=== PATIENT | female | born 1980 | race Caucasian/White ===

== ENCOUNTER 2016-07-14 08:05 | Inpatient (IN) | payer BC, SELFPAY ==
--- NOTE | 2016-07-13 22:17 | HP ---
DATE OF ADMISSION: 07/14/2016 ADMISSION DIAGNOSIS: A 39 and 1/7th week intrauterine , elective induction of labor. HISTORY OF PRESENT ILLNESS: The patient is a 35-year-old, 6, para 3-1-1-4 white female, who is admitted for elective induction of labor. She has an KEYUR of 07/20/2016 as based upon an early ultrasound done on 12/02/2015 at 7 and 0/7th weeks gestational age. This was supported by an ultrasound repeated on 03/28/2016. She was admitted for elective induction of labor to consist of Pitocin with probable artificial rupture of membranes. The procedure, risks, benefits, alternatives of care including natural onset of late labor discussed in detail was taken. She appears to understand and wishes to proceed. 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 Her first delivered at 30 weeks' gestational age on 11/04/2005 - 3 pounds 15 ounce male infant at [facility] in [place] -child's name is Oneil. Her second baby delivered on 10/04/2007 at 39 weeks' gestational age - 7 pounds 14 ounces - male - cerclage placed early in the at approximately 12 weeks - removed at the end of the - child's name is Francisco. Her third child was born 12/29/2010 at 41 weeks' gestational age - 7 pounds 1 ounces - normal spontaneous vaginal delivery - cerclage placed until 37 weeks, child's name is Enrrique. Next was a miscarriage on 02/02/2012 at 6 weeks gestational age and last was a male born 02/10/2013 at 39 weeks' gestational age. After 8 hours of labor, the patient underwent a stat section for nonreassuring heart tones. The patient did have a cerclage with her last 3 term pregnancies. All were removed at approximately 37 weeks. Last child born was Frida. The patient had last menstrual period which was approximate on 08/24/2015. She had menarche at age 16. Positive test was 11/17/2015. No control at the time of conception. Cycles somewhat irregular. The cerclage was placed on 12/24/2015 and was removed at approximately 36 weeks' gestational age. The patient had [place] testing done which returned normal. Her [place] depression screen score was 2 on 03/05/2016. Group B strep screen was negative. 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 The patient plans to nurse. Her first visit was on 12/02/2015 at 7 weeks gestational age. Her weight gain was from 230.2 pounds to 238.6 pounds for an 8-pound weight gain. Fundal height growth was appropriate. Laboratory testing in includes blood type which is A positive. Antibody screen is negative. Platelets at first visit were normal at 295. Rubella titer shows immunity. RPR is nonreactive. Hepatitis B and HIV assays were both negative. Chlamydia and gonorrhea assays were negative. [place] testing 12/22/2014 was negative. Her second trimester labs included hemoglobin which is normal at 12.2. Platelet count was normal at 317. One-hour GTT was normal at 87. Repeat hemoglobin and platelet count on 06/29/2016 was 12.9 and 294 respectively. Group B strep screen was negative. ALLERGIES: Penicillin which causes a rash. CURRENT MEDICATIONS: 1. Valacyclovir two 1 g tablets by mouth q.12 hours p.r.n. for oral herpes. 2. Prevacid 24-hour 50 mg delayed release capsule p.r.n. 3. vitamin daily. PAST MEDICAL HISTORY: 1. Normal spontaneous vaginal delivery x3. 2. Miscarriage x1. 3. Incompetent cervix with 3 previously placed cervical cerclages. 4. -induced hypertension with fourth . PAST SURGICAL HISTORY: 1. Cervical cerclage x3. 2. x1 on 02/10/2013. FAMILY HISTORY: Father is secondary to suicide. Mother with heart disease. One brother alive and well. Maternal grandmother alive with diabetes and hypertension. Paternal grandfather , secondary to multiple myeloma. Paternal grandmother secondary to breast cancer at age 64. Paternal grandfather secondary to lung cancer - had a remote history of smoking. No bleeding, anesthesia, clotting or problems noted in the family. SOCIAL HISTORY: The patient is . is Atilio Potts. The patient lives in [place], [place]. She does not use any significant amounts of alcohol, drugs, or tobacco. REVIEW OF SYSTEMS: GENERAL: The patient has no significant concerns related to a general status. HEENT: No problems. CARDIOVASCULAR: No chest pain or exercise intolerance. RESPIRATORY: No shortness of breath, upper respiratory infection symptoms. BREASTS: Without concern. Changes noted from . GI: No nausea, vomiting, diarrhea, or constipation. SYSTEM: Normal changes of . EXTREMITIES/MUSCULOSKELETAL: Some no edema noted in lower extremities bilaterally, but no significant joint swelling or problems noted. NEUROLOGICAL SYSTEM: No deficits noted. PHYSICAL EXAMINATION: VITAL SIGNS: On last evaluation in clinic, blood pressure was 122/88, weight was 240 with pre weight being 230.2 pounds. Her heart rate was 130. At first visit, her height was 5 feet 8 inches. GENERAL: The patient is a well-developed, well-nourished, overweight white female, in no acute distress. She is alert and oriented x3 and appears to her stated age. SKIN: Warm, dry, without lesions. HEENT: Neck and back within normal limits. LUNGS: Clear with good breath sounds in all lung reynoso. BREASTS: Exam is deferred having been done at first visit found to be normal. It is not repeated at this time. The patient does plan to nurse. ABDOMEN: Protuberant with with fundal height of 38+ cm. Baby is in a vertex presentation. GENITAL: Shows the cervix to be 2++cm, 70% effaced, soft, -3, mid position. EXTREMITIES: Show no significant edema. NEUROLOGICAL: Grossly within normal limits. ASSESSMENT: 1. Term intrauterine at 39 and 1/7th week gestational age admitted for elective induction of labor with Pitocin/artificial rupture of membranes. 2. Risk factors include a history of previous section, history of cerclage x3 with possible scarring, age of 35. 3. Group B strep screen is negative. 4. The patient plans to nurse. 5. The patient is open to epidural in labor and delivery. PLAN: 1. Admit for elective induction of labor on 07/15/2015 at mid day. Procedure, risks, benefits, alternatives of care and followup were discussed in detail. This inspection in light of history of previous section with potential risks of the scar separation etc. She appears to understand, wishes to proceed. 2. We will have the patient sign a consent for and for vaginal after . 3. We will obtain labs to be prepared in case of emergency section is necessary. 4. We will monitor near continuously in Labor and Delivery. 5. Obtain IV access immediately upon admission to labor and delivery. 6. We will evaluate the cervix in the morning of induction and then see whether induction can be done with artificial rupture of membranes alone. If not gentle Pitocin induction with rupture of membranes is one possible. 7. We will alert anesthesia and the OR that the patient is a trial of labor candidate in an attempt to . 8. The patient's MMR is reactive. Therefore she is immune. KATH /[id number]
[2016-07-14] MEDS ORDERED: Bupivacaine 0.25% 10 ML SDV ONE (12:00)
[2016-07-14] MEDS ORDERED: Nalbuphine 20 MG/1 ML Amp IVPUSH PRN (12:59)
[2016-07-14] MEDS ORDERED: Ondansetron 4 MG/2 ML SDV IVPUSH PRN ×2 (12:59→14:11)
[2016-07-14] MEDS ORDERED: Sodium Chloride 0.9% 10 ML Syringe FLUSH PRN (12:59)
[2016-07-14] MEDS ORDERED: Lactated Ringers 1,000 ML IV SCH (13:00)
[2016-07-14] MEDS ORDERED: Oxytocin/Lactated Ringers 10 UNIT/1,000 ML BAG IV SCH ×2 (13:00→14:00)
[2016-07-14] MEDS: Lactated Ringers 1,000 ML IV SCH ×2 (14:01→23:05)
--- NOTE | 2016-07-14 14:01 | PCM.PREANE ---
Preanesthetic Assessment - ANESTHESIA/TRANSFUSION/FAMILY HX Anesthesia/Transfusion History: No Prior Transfusion(s), Prior Anesthesia, Prior Anesthesia Reaction Type of Anesthesia Reaction: Reports: Excessive Nausea/Vomiting (using inhaled agents ) Family History of Anesthesia Reaction: No Intubation History: Unknown Type of Transfusion Reactions: Reports: Unknown - REVIEW OF SYSTEMS Constitutional: Reports: no symptoms IMAGING MANAGER: Reports: no symptoms Respiratory: Reports: no symptoms Cardiovascular: Reports: palpitations GI: Reports: no symptoms (GERD currently on prevacid.) Other: Reports: none - PHYSICAL ASSESSMENT HR: 73 O2 Sat by Pulse Oximetry: 99 RR: 18 BP: 146/85 Temp: 37.2 C Height: 1.73 m Weight: 109.316 kg NPO Status Date: 07/14/16 NPO Status Time: 11:30 ASA Class: 2 Mental Status: alert & oriented x3 Airway Class: Mallampati = 2 Dentition: Reports: normal dentition, caries Thyro-Mental Finger Breadths: 3 Mouth Opening Finger Breadths: 3 ROM/Head Extension: full Respiratory Status: lungs clear to auscultation bilaterally Cardiovascular Status: regular rate & rhythm, normal S1, S2, no murmur - LAB Values: Laboratory Last Values WBC 14.24 K/mm3 (3.98-10.04) H 07/14/16 13:28 RBC 4.68 M/mm3 (3.98-5.22) 07/14/16 13:28 Hgb 12.1 gm/L (11.2-15.7) 07/14/16 13:28 Hct 36.9 % (34.1-44.9) 07/14/16 13:28 MCV 78.8 fl (79.4-94.8) L 07/14/16 13:28 MCH 25.9 pg (25.6-32.2) 07/14/16 13:28 MCHC 32.8 g/dl (32.2-35.5) 07/14/16 13:28 RDW Std Deviation 45.6 fL (36.4-46.3) 07/14/16 13:28 Plt Count 264 K/mm3 (182-369) 07/14/16 13:28 MPV 10.6 fl (9.4-12.3) 07/14/16 13:28 Reviewed and noted. - ALLERGIES Allergies/Adverse Reactions: Allergies Allergy/AdvReac Type Severity Reaction Status Date / Time Penicillins Allergy Rash Verified 12/24/15 07:38 - ANESTHESIA PLAN Preop Beta Amy: No Anesthesia Type Planned: epidural - ACKNOWLEDGEMENTS Pt an appropriate candidate for the planned anesthesia: Yes Alternatives and risks of anesthesia discussed w pt/guardian: Yes Pt/Guardian understands and agree with anesthesia plan: Yes PreAnesthesia Questionnaire - SUBSTANCE USE Smoking Status *Q: Never Smoker Tobacco Use Within Last Twelve Months: No Second Hand Smoke Exposure: No Recreational Drug Use History: No - HOME MEDS Home Medications: Home Meds Acetaminophen [Tylenol] 325 mg PO Q6HR PRN #30 tablet 12/24/15 [Rx] - CURRENT (IN HOUSE) MEDS Current Meds: Current Medications Lactated Ringer's (Ringers, Lactated) 1,000 mls @ 100 mls/hr IV ASDIRECTED NIGEL Lactated Ringer's (Ringers, Lactated) 1,000 mls @ 125 mls/hr IV ASDIRECTED NIGEL Oxytocin/Lactated Ringer's (Pitocin In Lr 10 Units/1,000 Ml) 10 unit in 1,000 mls @ 500 mls/hr IV TITRATE NIGEL Lidocaine HCl (Xylocaine 1%) 50 ml INJECT ONETIME ONE Stop: 07/14/16 18:01 Nalbuphine HCl (Nubain) 10 mg IVPUSH Q2H PRN PRN Reason: Pain (moderate 4-6) Ondansetron HCl (Zofran) 4 mg IVPUSH Q4H PRN PRN Reason: Nausea/Vomiting Sodium Chloride (Saline Flush) 10 ml FLUSH ASDIRECTED PRN PRN Reason: Keep Vein Open
[2016-07-14] MEDS ORDERED: fentaNYL 100 MCG/2 ML SDV EPIDUR PRN (14:11)
[2016-07-14] MEDS ORDERED: ePHEDrine 50 MG/ML SDV IVPUSH PRN (14:11)
[2016-07-14] MEDS ORDERED: Bupivacaine/fentaNYL/NS 100 ML Bag EPIDUR SCH (14:15)
[2016-07-14] MEDS ORDERED: Lidocaine 1% 50 ML MDV INJECT ONE (18:00)
[2016-07-15] MEDS: Lactated Ringers 1,000 ML IV SCH ×2 (01:04→06:35)
[2016-07-15] MEDS ORDERED: Sodium Chloride 0.9% 1,000 ML ONE (04:29)
--- NOTE | 2016-07-15 08:28 | PCM.SN ---
- Free Text/Narrative Note: Chato was induced electively starting at midday on 07/14/2016. She started with low dose Pitocin underwent artificial rupture membranes and progressed to complete cervical dilation by approximately 0600 hours on 07/15/2016. She pushed for approximately 2-1/2 hours and was noted to have a baby in a left occiput posterior position and in retrospect head was somewhat asynclitic. She was tiring and and baby had been having variable decelerations throughout the night but with good return to baseline and with good variability. These however became somewhat longer and deeper in decision was made to proceed with a vacuum extraction assistance for delivery. This is discussed in detail the patient. She had previously with one of her babies. She consented verbally to this. The vacuum extractor was placed and with 2 contractions the baby was delivered. There were no pop offs. The total amount of time of vacuum was less than 1 minute. The baby was a male , 3350 g, ( 7 lbs. 6 oz.) delivery and in a left occiput posterior position which rotated at the last minute and delivered at 0805 hours on 07/15/2016. Baby's nose and mouth were bulb suctioned. There was a nuchal cord which was moderately tight x1 , could not be reduced over the baby's head and therefore was reduced over the baby's body. The baby delivered without problems. Baby had Apgars of 8 and 9. Baby was placed on mom's abdomen. The cord was allowed to cease pulsations and then was cut. This per patient desire. the cord is noted to have 3 vessels. Cord blood was obtained. The placenta delivered in a Schultze fashion at 0810 hours. It appeared intact and complete. It was discarded per patient desire. Patient had no lacerations. Estimated blood loss was 100 cc. Patient plans to nurse. Condition good.
[2016-07-15] MEDS ORDERED: Lanolin 100% Cream 7 GM Tube TOP PRN (08:38)
[2016-07-15] MEDS ORDERED: Witch Hazel Medicated Pads 100/Jar TOP PRN (08:38)
[2016-07-15] MEDS ORDERED: Benzocaine/Menthol 20%-0.5% Spray 56 GM Canister TOP PRN (08:38)
[2016-07-15] MEDS ORDERED: Docusate Sodium 100 MG Cap PO PRN (08:38)
[2016-07-15] MEDS: Prenatal Multivitamin with Calcium/Folic Acid/Iron Tab PO SCH (09:47)
[2016-07-15] MEDS: Ibuprofen 600 MG Tab PO PRN ×3 (09:48→20:29)
[2016-07-15] MEDS: Acetaminophen 325 MG Tab PO PRN (20:15)
[2016-07-16] MEDS: Ibuprofen 600 MG Tab PO PRN ×4 (00:31→18:56)
[2016-07-16] MEDS: Prenatal Multivitamin with Calcium/Folic Acid/Iron Tab PO SCH (08:13)
--- NOTE | 2016-07-16 08:18 | PCM.SN ---
- Free Text/Narrative Note: Patient is having no concerns at this time. She is ambulating well, voiding well and has minimal lochia. She is nursing without problems. She is afebrile, vital signs stable. Blood pressure is within normal ends. Abdomen is flat, soft, uterus is at the umbilicus -1. It is firm and nontender. Legs are nontender. Assessment/plan: day 1-status post vacuum extraction delivery. Patient doing well. Recommend routine care, home tomorrow.
--- NOTE | 2016-07-16 10:56 | PCM48HPAN ---
Post Anesthesia Note - EVALUATION WITHIN 48HRS OF ANESTHETIC Vital Signs in Normal Range: Yes Patient Participated in Evaluation: Yes Respiratory Function Stable: Yes Airway Patent: Yes Cardiovascular Function Stable: Yes Hydration Status Stable: Yes Pain Control Satisfactory: Yes Nausea and Vomiting Control Satisfactory: Yes Mental Status Recovered: Yes
[2016-07-16] MEDS: Acetaminophen 325 MG Tab PO PRN (16:40)
[2016-07-17] MEDS: Ibuprofen 600 MG Tab PO PRN ×2 (00:38→09:55)
--- NOTE | 2016-07-17 06:24 | PCM.DCSUM1 ---
Discharge Summary - Hospital Course Free Text/Narrative:: Chato was induced electively starting at midday on 07/14/2016. She started with low dose Pitocin underwent artificial rupture membranes and progressed to complete cervical dilation by approximately 0600 hours on 07/15/2016. She pushed for approximately 2-1/2 hours and was noted to have a baby in a left occiput posterior position and in retrospect head was somewhat asynclitic. She was tiring and and baby had been having variable decelerations throughout the night but with good return to baseline and with good variability. These however became somewhat longer and deeper in decision was made to proceed with a vacuum extraction assistance for delivery. This is discussed in detail the patient. She had previously with one of her babies. She consented verbally to this. The vacuum extractor was placed and with 2 contractions the baby was delivered. There were no pop offs. The total amount of time of vacuum was less than 1 minute. The baby was a male , 3350 g, ( 7 lbs. 6 oz.) delivery and in a left occiput posterior position which rotated at the last minute and delivered at 0805 hours on 07/15/2016. Baby's nose and mouth were bulb suctioned. There was a nuchal cord which was moderately tight x1 , could not be reduced over the baby's head and therefore was reduced over the baby's body. The baby delivered without problems. Baby had Apgars of 8 and 9. Baby was placed on mom's abdomen. The cord was allowed to cease pulsations and then was cut. This per patient desire. the cord is noted to have 3 vessels. Cord blood was obtained. The placenta delivered in a Schultze fashion at 0810 hours. It appeared intact and complete. It was discarded per patient desire. Patient had no lacerations. Estimated blood loss was 100 cc. Patient plans to nurse. the patient has done well. She said minimal lochia. Blood has been fine and pain is minimal. She is nursing without problems. Followup CBC was within normal limits for the period.Patient desires to be discharged home. - Discharge Data Discharge Date: 07/17/16 Discharge Disposition: Home, Self-Care 01 Condition: Good - Patient Instructions Diet: Regular Diet as Tolerated (Nursing diet was increased calories and calcium as directed.) Activity: As Tolerated (No intercourse or tampons until bleeding resolves) Driving: May Drive Today Showering/Bathing: May Shower (May take a bath) Notify Provider of: Fever, Increased Pain, Swelling and Redness, Nausea and/or Vomiting - Discharge Plan Home Medications: Home Meds Acetaminophen [Tylenol] 325 mg PO Q6HR PRN #30 tablet 12/24/15 [Rx] Lansoprazole [Prevacid] 15 mg PO DAILY 07/14/16 [History] Multivitamin [Flintstones] 1 each PO DAILY 07/14/16 [History] Ibuprofen [IJD: Ibuprofen] 600 mg PO Q4H PRN #30 tablet 07/17/16 [Rx] Referrals: Momo Klein MD [Primary Care Provider] - (Return to clinic-Dr. Klein-6 weeks-[facility].) - Discharge Summary/Plan Comment DC Time >30 min.: No Discharge Summary/Plan Comment: Discharge instructions: 1. Discharge home 2. Regular, high fiber, nursing diet with increase calories and calcium. Activity and followup discussed with the patient in detail. 3. Precautions given to the patient concerning increased pain, bleeding, temperature, signs/symptoms of DVT/PE. 4. Medications per home medication was printed, discussed with and given to the patient 5. Return to clinic-Dr. Klein-6 weeks-[facility]. Diagnosis: Term intrauterine -delivered via vacuum extraction delivery on 07/15/2016 Condition: Good - Patient Data Vitals - Most Recent: Last Vital Signs Temp 36.7 C 07/17/16 05:59 Pulse 63 07/17/16 05:59 Resp 16 07/17/16 05:59 BP 120/70 07/17/16 05:59 Pulse Ox 97 07/17/16 05:59 Weight - Most Recent: 109.316 kg I&O - Last 24 hours: Intake & Output 07/16/16 07/16/16 07/17/16 14:59 22:59 06:59 Intake Total 430 240 Balance 430 240 Lab Results - Last 24 hrs: Laboratory Results - last 24 hr 07/16/16 Range/Units 08:50 WBC 15.67 H (3.98-10.04) K/mm3 RBC 4.30 (3.98-5.22) M/mm3 Hgb 11.2 (11.2-15.7) gm/L Hct 34.5 (34.1-44.9) % MCV 80.2 (79.4-94.8) fl MCH 26.0 (25.6-32.2) pg MCHC 32.5 (32.2-35.5) g/dl RDW Std Deviation 47.0 H (36.4-46.3) fL Plt Count 247 (182-369) K/mm3 MPV 10.6 (9.4-12.3) fl Med Orders - Current: Current Medications Acetaminophen (Tylenol) 650 mg PO Q4H PRN PRN Reason: mild pain or fever Last Admin: 07/16/16 16:40 Dose: 650 mg Benzocaine/Menthol (Dermoplast Pain Relief [place]) 0 gm TOP ASDIRECTED PRN PRN Reason: Perineal Comfort Measure Last Admin: 07/15/16 12:56 Dose: 1 spray Docusate Sodium (Colace) 100 mg PO BID PRN PRN Reason: Constipation Emollient Ointment (Lansinoh Hpa) 0 gm TOP ASDIRECTED PRN PRN Reason: Sore Nipples Last Admin: 07/17/16 00:38 Dose: 1 applic Ibuprofen (Motrin) 600 mg PO Q4H PRN PRN Reason: Mild pain or fever Last Admin: 07/17/16 00:38 Dose: 600 mg Prenat Multivit/[place]/Iron/Folic Ac ( Plus Iron) 1 each PO DAILY NIGEL Last Admin: 07/16/16 08:13 Dose: Not Given Susan Bey (Tucks) 1 pad TOP ASDIRECTED PRN PRN Reason: Hemorrhoid pain Last Admin: 07/15/16 12:56 Dose: 1 pad Discontinued Medications Ephedrine Sulfate (Ephedrine Sulfate) 5 mg IVPUSH ASDIRECTED PRN PRN Reason: Hypotension Fentanyl (Sublimaze) 100 mcg EPIDUR Q3H PRN PRN Reason: Pain Last Admin: 07/14/16 22:39 Dose: 100 mcg Fentanyl/Bupivacaine HCl (Fentanyl/Bupivacaine/Ns 2 Mcg-0.125% 100 Ml) 100 ml EPIDUR ASDIRECTED [facility] Last Admin: 07/14/16 22:39 Dose: 100 ml Lactated Ringer's (Ringers, Lactated) 1,000 mls @ 100 mls/hr IV ASDIRECTED NIGEL Last Admin: 07/15/16 06:35 Dose: 100 mls/hr Lactated Ringer's (Ringers, Lactated) 1,000 mls @ 125 mls/hr IV ASDIRECTED NIGEL Oxytocin/Lactated Ringer's (Pitocin In Lr 10 Units/1,000 Ml) 10 unit in 1,000 mls @ 500 mls/hr IV TITRATE NIGEL Last Admin: 07/15/16 08:08 Dose: 500 mls/hr Oxytocin/Lactated Ringer's (Pitocin In Lr 10 Units/1,000 Ml) 10 unit in 1,000 mls @ 12 mls/hr IV TITRATE NIGEL; 2 MUNITS/MIN PRN Reason: Protocol Last Titration: 07/15/16 06:05 Dose: 12 munits/min, 72 mls/hr Sodium Chloride (Normal Saline) Confirm Administered Dose 1,000 mls @ as directed .ROUTE .STK-MED ONE Stop: 07/15/16 04:30 Last Admin: 07/16/16 15:41 Dose: Not Given Lidocaine HCl (Xylocaine 1%) 50 ml INJECT ONETIME ONE Stop: 07/14/16 18:01 Last Admin: 07/16/16 15:41 Dose: Not Given Nalbuphine HCl (Nubain) 10 mg IVPUSH Q2H PRN PRN Reason: Pain (moderate 4-6) Ondansetron HCl (Zofran) 4 mg IVPUSH Q4H PRN PRN Reason: Nausea/Vomiting Ondansetron HCl (Zofran) 4 mg IVPUSH ONETIME PRN PRN Reason: Nausea/Vomiting Sodium Chloride (Saline Flush) 10 ml FLUSH ASDIRECTED PRN PRN Reason: Keep Vein Open *Q Meaningful Use (DIS) - VTE *Q VTE Criteria *Q: - Stroke *Q Stroke Criteria *Q: - AMI *Q AMI Criteria *Q:
[2016-07-17] MEDS: Prenatal Multivitamin with Calcium/Folic Acid/Iron Tab PO SCH ×2 (07:32→09:16)
[2016-07-17] MEDS: Acetaminophen 325 MG Tab PO PRN ×2 (07:32→12:17)
[2016-07-17 13:21] VITALS: BP 145/90
== END 2016-07-17 12:36 | disposition home or self-care (01) | DRG 560 ==
LOC: JD.OB 08:05 → OBSVTOIN 07-15 08:05 → JD.OB 07-15 08:05 → EDSTATUS 07-20 12:01
PROVIDERS: ADMIT Obstetrics & Gynecology; ATTEND Obstetrics & Gynecology
PROC: 10D07Z6 Extraction of Products of Conception, Vacuum, Via Natural or Artificial Opening (ICD-10-PCS; principal; 2016-07-15)
PROC: 3E033VJ Introduction of Other Hormone into Peripheral Vein, Percutaneous Approach (ICD-10-PCS; 2016-07-15)
PROC: 10907ZC Drainage of Amniotic Fluid, Therapeutic from Products of Conception, Via Natural or Artificial Opening (ICD-10-PCS; 2016-07-15)
PROC: 00HU33Z Insertion of Infusion Device into Spinal Canal, Percutaneous Approach (ICD-10-PCS; 2016-07-15)
PROC: 3E0R3CZ (ICD-10-PCS; 2016-07-15)
DX: O34.211 Maternal care for low transverse scar from previous cesarean delivery (principal); N85.8 Other specified noninflammatory disorders of uterus; O69.81X0 Labor and delivery complicated by cord around neck, without compression, not applicable or unspecified; Z3A.39 39 weeks gestation of pregnancy; Z37.0 Single live birth; Z88.0 Allergy status to penicillin
CPT/HCPCS: 36415; 85027; 86850; 86900; 86901; A9270-GY; J2590; J3010; J7120

== ENCOUNTER 2019-06-17 06:01 | Day surgery (SDC) | payer OTHER, SELFPAY ==
[~2019-06-17 06:01] MED LIST: Lidocaine 1%/Sod Bicarbonate in NS 8.4% 1 ML Syringe IDERM PRN; Sodium Chloride 0.9% 10 ML Syringe FLUSH PRN
[2019-06-17] MEDS ORDERED: Scopolamine 1.5 MG Transdermal Patch TOP SCH (06:30)
[2019-06-17] MEDS ORDERED: Midazolam 1 MG/ML 2 ML SDV ONE (06:56)
[2019-06-17] MEDS ORDERED: Ondansetron 4 MG/2 ML SDV ONE (06:56)
[2019-06-17] MEDS ORDERED: Rocuronium 50 MG/5 ML Vial ONE (06:56)
[2019-06-17] MEDS ORDERED: Propofol 200 MG/20 ML SDV ONE ×5 (06:56→08:29)
[2019-06-17] MEDS ORDERED: fentaNYL 250 MCG/5 ML SDV ONE ×2 (06:56→08:20)
[2019-06-17] MEDS ORDERED: Dexamethasone 4 MG/ML 5 ML MDV ONE (06:57)
[2019-06-17] MEDS ORDERED: Lidocaine 1% 4 ML ONE (06:57)
[2019-06-17] MEDS ORDERED: Ketorolac 30 MG/ML SDV ONE (06:57)
[2019-06-17] MEDS: Lactated Ringers 1,000 ML IV SCH ×2 (07:03→09:13)
--- NOTE | 2019-06-17 07:15 | PCM.PREANE ---
Preanesthetic Assessment - Procedure Proposed Procedure: TVH with BS - Anesthesia/Transfusion/Family Hx Anesthesia History: Prior Anesthesia Reaction (nausea) Family History of Anesthesia Reaction: No Transfusion History: No Prior Transfusion(s) Type of Transfusion Reactions: Reports: Unknown - Review of Systems General: No Symptoms Pulmonary: No Symptoms Cardiovascular: No Symptoms Gastrointestinal: No Symptoms Neurological: No Symptoms Other: Reports: None - Physical Assessment NPO Status Date: 06/16/19 NPO Status Time: 22:00 Vital Signs: Last Vital Signs Temp 36.2 C 06/17/19 06:20 Pulse 65 06/17/19 06:20 Resp 16 06/17/19 06:20 BP 135/88 06/17/19 06:20 Pulse Ox 97 06/17/19 06:20 Height: 1.73 m Weight: 106.141 kg ASA Class: 2 Mental Status: Alert & Oriented x3 Airway Class: Mallampati = 2 Dentition: Reports: Normal Dentition Thyro-Mental Finger Breadths: 3 Mouth Opening Finger Breadths: 3 ROM/Head Extension: Full Lungs: Clear to Auscultation, Normal Respiratory Effort Cardiovascular: Regular Rate, Regular Rhythm - Lab Values: Laboratory Last Values WBC 6.85 K/mm3 (3.98-10.04) 06/17/19 06:45 RBC 5.53 M/mm3 (3.98-5.22) H 06/17/19 06:45 Hgb 14.2 gm/dl (11.2-15.7) 06/17/19 06:45 Hct 45.0 % (34.1-44.9) H 06/17/19 06:45 MCV 81.4 fl (79.4-94.8) 06/17/19 06:45 MCH 25.7 pg (25.6-32.2) 06/17/19 06:45 MCHC 31.6 g/dl (32.2-35.5) L 06/17/19 06:45 RDW Std Deviation 43.2 fL (36.4-46.3) 06/17/19 06:45 Plt Count 364 K/mm3 (182-369) 06/17/19 06:45 MPV 9.7 fl (9.4-12.3) 06/17/19 06:45 Neut % (Auto) 56.6 % (34.0-71.1) 06/17/19 06:45 Lymph % (Auto) 30.8 % (19.3-51.7) 06/17/19 06:45 [place] % (Auto) 6.0 % (4.7-12.5) 06/17/19 06:45 Eos % (Auto) 4.7 (0.7-5.8) 06/17/19 06:45 Baso % (Auto) 1.6 % (0.1-1.2) H 06/17/19 06:45 Neut # (Auto) 3.88 K/mm3 (1.56-6.13) 06/17/19 06:45 Lymph # (Auto) 2.11 K/mm3 (1.18-3.74) 06/17/19 06:45 [place] # (Auto) 0.41 K/mm3 (0.24-0.36) H 06/17/19 06:45 Eos # (Auto) 0.32 K/mm3 (0.04-0.36) 06/17/19 06:45 Baso # (Auto) 0.11 K/mm3 (0.01-0.08) H 06/17/19 06:45 Creatinine 0.8 mg/dL (0.55-1.02) 06/17/19 06:45 Est Cr Clr Drug Dosing 96.18 mL/min 06/17/19 06:45 Estimated GFR (MDRD) > 60 mL/min (>60) 06/17/19 06:45 Urine Color Yellow (Yellow) 06/17/19 06:17 Urine Appearance Clear (Clear) 06/17/19 06:17 Urine pH 6.0 (5.0-8.0) 06/17/19 06:17 Ur Specific [place] > or = 1.030 (1.005-1.030) 06/17/19 06:17 Urine Protein Trace (Negative) H 06/17/19 06:17 Urine Glucose (UA) Negative (Negative) 06/17/19 06:17 Urine Ketones Negative (Negative) 06/17/19 06:17 Urine Occult Blood Negative (Negative) 06/17/19 06:17 Urine Nitrite Negative (Negative) 06/17/19 06:17 Urine Bilirubin Negative (Negative) 06/17/19 06:17 Urine Urobilinogen 0.2 (0.2-1.0) 06/17/19 06:17 Ur Leukocyte Esterase Negative (Negative) 06/17/19 06:17 Urine RBC 0-5 /hpf (0-5) 06/17/19 06:17 Urine WBC 0-5 /hpf (0-5) 06/17/19 06:17 Ur Squamous Epith Cells 0-5 /hpf (0-5) 06/17/19 06:17 Urine Bacteria Moderate /hpf (FEW) H 06/17/19 06:17 Urine Mucus Moderate /hpf (FEW) H 06/17/19 06:17 Urine HCG, Qual Negative (NEGATIVE) 06/17/19 06:17 - Allergies Allergies/Adverse Reactions: Allergies Allergy/AdvReac Type Severity Reaction Status Date / Time Penicillins Allergy Rash Verified 06/16/19 14:31 - Anesthesia Plan Pre-Op Medication Ordered: None - Acknowledgements Anesthesia Type Planned: General Anesthesia Pt an Appropriate Candidate for the Planned Anesthesia: Yes Alternatives and Risks of Anesthesia Discussed w Pt/Guardian: Yes Pt/Guardian Understands and Agrees with Anesthesia Plan: Yes PreAnesthesia Questionnaire HEENT History: Reports: Allergic Rhinitis, Impaired Vision Cardiovascular History: Reports: None Respiratory History: Reports: None Gastrointestinal History: Reports: GERD, Other (See Below) Other Gastrointestinal History: rectal pain Genitourinary History: Reports: Other (See Below) Other Genitourinary History: bacterial UTI, breast candidiasis T[employer] History: Reports: , Other (See Below) Other OB/BYN History: history of PTL, cervical cerclage X4 for incompetent cervix, menorrhagia, dysmenorrhea, enlarged uterus, x4 Musculoskeletal History: Reports: None Neurological History: Reports: Headaches, Chronic Psychiatric History: Reports: Anxiety, Depression Endocrine/Metabolic History: Reports: None Hematologic History: Reports: None Immunologic History: Reports: None Oncologic (Cancer) History: Reports: None Dermatologic History: Reports: Other (See Below) Other Dermatologic History: herpes labialis - Past Surgical History Head Surgeries/Procedures: Reports: None HEENT Surgical History: Reports: Oral Surgery Cardiovascular Surgical History: Reports: None Respiratory Surgical History: Reports: None GI Surgical History: Reports: None Female Surgical History: Reports: Breast Reduction Male Surgical History: Reports: None Endocrine Surgical History: Reports: None Neurological Surgical History: Reports: None Musculoskeletal Surgical History: Reports: None Oncologic Surgical History: Reports: None - SUBSTANCE USE Smoking Status *Q: Never Smoker Tobacco Use Within Last Twelve Months: No Second Hand Smoke Exposure: No Days Per Week of Alcohol Use: 0 Number of Drinks Per Day: 0 Total Drinks Per Week: 0 Recreational Drug Use History: No - HOME MEDS Home Medications: Home Meds Fish Oil/[place]-3 Fatty Acids [Fish Oil 1,000 MG] 1 gm PO DAILY 06/16/19 [History ] Multivitamin [Daily Multiple Vitamin] 1 tab PO DAILY 06/16/19 [History] Phyto Estrogen 1 dose PO DAILY 06/16/19 [History] Triamcinolone Acetonide [Triamcinolone Acetonide 0.1% Crm] 1 dose TOP ASDIRECTED 06/16/19 [History] valACYclovir HCl [valACYclovir] 1,000 mg PO ASDIRECTED PRN 06/16/19 [History] Lansoprazole [Prevacid] 15 mg PO DAILY 06/17/19 [History] - CURRENT (IN HOUSE) MEDS Current Meds: Current Medications Lactated Ringer's (Ringers, Lactated) 1,000 mls @ 125 mls/hr IV ASDIRECTED NIGEL Stop: 06/17/19 23:00 Lidocaine/Sodium Bicarbonate (Buffered Lidocaine 1% In Ns 8.4%) 0.25 ml IDERM ONETIME PRN PRN Reason: Prior to IV Start Stop: 06/17/19 18:00 Scopolamine (Transderm-Scop) 1.5 mg TOP ONETIME NIGEL Stop: 06/17/19 18:00 Last Admin: 06/17/19 06:31 Dose: 1.5 mg Sodium Chloride (Saline Flush) 10 ml FLUSH ASDIRECTED PRN PRN Reason: Keep Vein Open Stop: 06/17/19 18:00 Discontinued Medications Dexamethasone (Dexamethasone) Confirm Administered Dose 20 mg .ROUTE .STK-MED ONE Stop: 06/17/19 06:58 Fentanyl (Sublimaze) Confirm Administered Dose 250 mcg .ROUTE .STK-MED ONE Stop: 06/17/19 06:57 Lidocaine HCl (Xylocaine-Mpf 1%) Confirm Administered Dose 4 mls @ as directed .ROUTE .STK-MED ONE Stop: 06/17/19 06:58 Ketorolac Tromethamine (Toradol) Confirm Administered Dose 30 mg .ROUTE .STK- MED ONE Stop: 06/17/19 06:58 Midazolam HCl (Versed 1 Mg/Ml) Confirm Administered Dose 2 mg .ROUTE .STK-MED ONE Stop: 06/17/19 06:57 Ondansetron HCl (Zofran) Confirm Administered Dose 4 mg .ROUTE .STK-MED ONE Stop: 06/17/19 06:57 Propofol (Diprivan 20 Ml) Confirm Administered Dose 200 mg .ROUTE .STK-MED ONE Stop: 06/17/19 06:57 Rocuronium [place] (Zemuron) Confirm Administered Dose 50 mg .ROUTE .STK-MED ONE Stop: 06/17/19 06:57
[2019-06-17] MEDS ORDERED: Lidocaine 1% with EPINEPHrine 1:100,000 20 ML MDV ONE (07:19)
[2019-06-17] MEDS ORDERED: Bupivacaine 0.5% 30 ML SDV ONE (07:19)
[2019-06-17] MEDS ORDERED: Sodium Chloride 0.9% 50 ML SDV ONE (07:20)
[2019-06-17] MEDS ORDERED: diphenhydrAMINE 50 MG/ML SDV ONE (07:56)
[2019-06-17] MEDS ORDERED: ceFAZolin 1 GM Vial ONE (07:58)
[2019-06-17] MEDS ORDERED: HYDROmorphone 0.5 MG/0.5 ML Syringe ONE ×2 (08:07→08:08)
[2019-06-17] MEDS ORDERED: Lactated Ringers 1,000 ML ONE (08:16)
[2019-06-17] MEDS ORDERED: Ondansetron 4 MG/2 ML SDV IVPUSH PRN (08:53)
--- NOTE | 2019-06-17 09:01 | PCM.OPNOTE ---
- General Post-Op/Procedure Note Date of Surgery/Procedure: 06/17/19 Operative Procedure(s): Total vaginal hysterectomy with bilateral salpingectomy Findings: Uterus was mildly enlarged. Fallopian tubes and ovaries were within normal limits for age. Pre Op Diagnosis: 1. Menorrhagia with irregular menses. 2. Dysmenorrhea. 3. Enlarged uterus Post-Op Diagnosis: Same Anesthesia Technique: General ET Tube Other Anesthesia Type: Lidocaine quarter percent with [id number] mL local Primary Surgeon: Momo Klein Secondary Surgeon: Cy Frances Anesthesia Provider: Pb Nielsen Insurance Adjustor: Xochilt Evans Reason Insurance Adjustor Was Necessary: Retraction, assistance, patient safety, quality of care. Pathology: Uterus, tubes and ovaries in one specimen container. EBL in mLs: 100 Complications: None Condition: Good Free Text/Narrative:: Surgery duration: 32 minutes Procedure: The patient was placed in supine position on the operating table. General endotracheal anesthesia was accomplished. After positioning, and adequate prep and drape, the procedure was then performed. Sterile speculum was placed in the vagina and cervix was visualized. Cervix was injected with lidocaine quarter percent with epinephrine-20 mL used. A full circumference incision was made in the cervical epithelium. The bladder was pushed well back off cervix. Posterior cul-de-sac was then entered sharply without problems. Left uterosacral was crossclamped with a Enseal vessel closure system. The left uterosacral and then the right uterosacral ligament pedicles were developed using the Enseal system. The anterior cul-de-sac was then entered without problems and the uterine vasculature, cardinal ligament and broad ligament then developed using Enseal vessel closure system. Specimen was totally removed. Both these pedicles were then secured with the Enseal vessel closure system. Left and right fallopian tube was normal in appearance.. Using Enseal vessel closure system each of the tubes was then removed and sent with the specimen. The patient was found to be hemostatically intact at this time. Vaginal cuff was sutured for hemostatic reasons with a running locked suture of 0 Monocryl from the 2 o'clock position to the 10 o'clock position posteriorly. Vaginal cuff was then closed from right to left side with a running locked suture of 0 Monocryl. Patient was returned to supine position and awakened from general endotracheal anesthesia. She tolerated the procedure and left the operating room in satisfactory condition.
[2019-06-17] MEDS ORDERED: HYDROmorphone 0.5 MG/0.5 ML Syringe IVPUSH PRN (09:04)
[2019-06-17] MEDS ORDERED: fentaNYL 100 MCG/2 ML SDV IVPUSH PRN (09:04)
--- NOTE | 2019-06-17 09:06 | PCM.POSTAN ---
POST ANESTHESIA ASSESSMENT - MENTAL STATUS Mental Status: Alert, Oriented - VITAL SIGNS Vital Signs: Last Vital Signs Temp 36.4 C 06/17/19 08:51 Pulse 65 06/17/19 06:20 Resp 11 L 06/17/19 08:51 BP 122/61 06/17/19 08:51 Pulse Ox 99 06/17/19 09:02 - RESPIRATORY Respiratory Status: Respiratory Rate WNL, Airway Patent, O2 Saturation Stable, Supplemental Oxygen - CARDIOVASCULAR CV Status: Pulse Rate WNL, Blood Pressure Stable - GASTROINTESTINAL GI Status: No Symptoms - PAIN Pain Score: 2 - POST OP HYDRATION Hydration Status: Adequate & Stable - OBSERVATIONS Free Text/Narrative:: no anesthesia complications noted
[2019-06-17] MEDS ORDERED: Acetaminophen/oxyCODONE 325-5 MG Tab PO PRN ×2 (09:49→10:00)
[2019-06-17 11:15] VITALS: BP 131/81; PULSE 74
[2019-06-17] MEDS ORDERED: Ketorolac 30 MG/ML SDV IVPUSH SCH (13:00)
[2019-06-17] MEDS ORDERED: Ibuprofen 600 MG Tab PO PRN (19:00)
== END 2019-06-17 10:55 | disposition home or self-care (01) ==
LOC: JD.SDS 06:01
PROVIDERS: ATTEND Obstetrics & Gynecology
DX: N80.0 Endometriosis of uterus (principal); N88.8 Other specified noninflammatory disorders of cervix uteri; N72 Inflammatory disease of cervix uteri; F41.9 Anxiety disorder, unspecified; F32.9 Major depressive disorder, single episode, unspecified; N88.3 Incompetence of cervix uteri; Z88.0 Allergy status to penicillin; Z88.1 Allergy status to other antibiotic agents; K21.9 Gastro-esophageal reflux disease without esophagitis
CPT/HCPCS: 36415; 58262; 81001; 81025; 82565; 85025; 86850; 86900; 86901; A9270; J0690; J1100; J1170; J1200; J1885; J2001; J2250; J2405; J2704; J3010; J7120; 00944; J3490

== ENCOUNTER → 2022-01-24 | Day surgery (SDC) | payer OTHER ==
[~2022-01-24] MED LIST changes: +Acetaminophen/oxyCODONE 325-5 MG Tab PO ONE; +Bupivacaine 0.5% 30 ML SDV ONE; +HYDROmorphone 0.5 MG/0.5 ML Syringe IVPUSH PRN; +Ketorolac 30 MG/ML SDV ONE; +Lactated Ringers 1,000 ML IV SCH; +Lidocaine 1% 4 ML ONE; +Midazolam 1 MG/ML 2 ML SDV ONE; +Ondansetron 4 MG/2 ML SDV IVPUSH PRN; +Ondansetron 4 MG/2 ML SDV ONE; +Propofol 200 MG/20 ML SDV ONE; +Rocuronium 50 MG/5 ML Vial ONE; +Sodium Chloride 0.9% 10 ML Syringe FLUSH SCH; +Sugammadex Sodium 200 MG/2 ML VIAL ONE; +ceFAZolin 2 GM Vial ONE; +fentaNYL 100 MCG/2 ML SDV ONE
[2022-01-24] MEDS: fentaNYL 100 MCG/2 ML SDV IVPUSH PRN ×2 (13:32→13:49)
[2022-01-24 16:57] VITALS: BP 114/74; PULSE 70
== END | disposition home or self-care (01) ==
LOC: JD.SDS 09:00
PROVIDERS: ATTEND Obstetrics & Gynecology
DX: N83.201 Unspecified ovarian cyst, right side (principal); F41.9 Anxiety disorder, unspecified; K21.9 Gastro-esophageal reflux disease without esophagitis; Z88.0 Allergy status to penicillin; Z79.899 Other long term (current) drug therapy; Z98.890 Other specified postprocedural states
CPT/HCPCS: 36415; 58662; 81003; 81025; 85025; A9270; J0690; J1170; J1885; J2250; J2405; J2704; J3010; J3490; J7120; 00840

== ENCOUNTER → 2022-09-27 | Day surgery (SDC) | payer OTHER ==
[~2022-09-27] MED LIST changes: -Acetaminophen/oxyCODONE 325-5 MG Tab PO ONE; -Bupivacaine 0.5% 30 ML SDV ONE; +Dexamethasone 4 MG/ML 5 ML MDV ONE; +Dexmedetomidine 200 MCG/2 ML SDV ONE; +EPINEPHrine 1 MG/ML 30 ML MDV IRR SCH; +EPINEPHrine 1 MG/ML SDV ONE; -Ketorolac 30 MG/ML SDV ONE; +Lactated Ringers 1,000 ML ONE; -Lidocaine 1% 4 ML ONE; +Lidocaine 1% 5 ML VIAL ONE; +Ropivacaine 0.5% 5 MG/ML 30 ML SDV ONE; +Scopolamine 1.5 MG Transdermal Patch TOP SCH; +diphenhydrAMINE 50 MG/ML SDV ONE; +fentaNYL 100 MCG/2 ML SDV IVPUSH PRN
[2022-09-27 15:39] VITALS: BP 118/70; PULSE 76
== END | disposition home or self-care (01) ==
LOC: JD.SDS 07:55
PROVIDERS: ATTEND Orthopaedic Surgery
DX: S46.111D Strain of muscle, fascia and tendon of long head of biceps, right arm, subsequent encounter (principal); K21.9 Gastro-esophageal reflux disease without esophagitis; R21 Rash and other nonspecific skin eruption; D48.5 Neoplasm of uncertain behavior of skin; R00.2 Palpitations; F41.9 Anxiety disorder, unspecified; F32.A Depression, unspecified; Z88.0 Allergy status to penicillin; Z79.899 Other long term (current) drug therapy; Z90.710 Acquired absence of both cervix and uterus; X58.XXXD Exposure to other specified factors, subsequent encounter
CPT/HCPCS: 11104; 29826; 29827; 64415; A9270; C1713; J0171; J0690; J1100; J1200; J2250; J2405; J2704; J2795; J3010; J3490; J7120; 01630